=== PATIENT | female | born 1955 | race Caucasian/White ===

== ENCOUNTER 2024-01-14 18:30 | Emergency (ER) | payer MEDICARE, OTHER, SELFPAY ==
[2024-01-14 18:34] VITALS: BP 137/74; BMI 27.8
--- NOTE | 2024-01-14 19:26 | ED.GENMED ---
History of Present Illness
General
Chief Complaint: Cough
Time Seen by Provider: 01/14/24 19:11
Travel History
Have you had any contact with someone who has COVID-19?: No
Do you have any symptoms of coronavirus? Fever > 100 degrees, chills, cough, shortness of breath, sore throat, loss of taste or smell, muscle aches, or headache?: No
History of Present Illness
History of Present Illness:
68-year-old female presents the emergency department for evaluation of sore throat, cough, congestion, postnasal drip. Her has similar symptoms. Denies any fevers or chills. No history of lung disease
Past History
Past History
ED Past Medical History: Cancer (Breast cancer with lumpectomy.)
ED Past Surgical History: Orthopedic (Previous tibial plateau fracture.)
Social History
Tobacco: Non-smoker
Alcohol: Occasional
Drug: None
Personal:
Living: with family
Employment: Employed
Family History
Family History: Other (Noncontributory)
Review of Systems
Review of Systems
Allergies reviewed?: Yes
All Other Systems: ROS reviewed and negative except as documented in HPI and ROS
Phy Exam
Physical Exam
Physical Exam:
GEN: Well appearing, NAD, WDWN
HEENT: Oral mucosa moist, no scleral icterus, oropharynx clear
Cardiac: Regular rate and rhythm, no murmurs
Lung: No respiratory distress, no tachypnea, lungs clear to auscultation
MSK: No gross deformity or injuries
Skin: Good color, no pallor or jaundice, no rashes
Neuro: AO x3, moves all extremities freely
Psych: Calm, cooperative
Course
Orders/Labs/Results
Orders:
Orders
01/14/24 19:16
COVID-19 Antigen Urgent
Source: Nasal Swab
Influenza A+B Rapid Molecular Urgent
NITA Source: Nasal Swab
Specimen Description:
01/14/24 20:24
Azithromycin [Zithromax] 500 mg PO NOW STA
Vital Signs
Initial and Last Documented VS:
Initial Vital Signs
Temp Pulse Resp BP Pulse Ox
98.0 F 101 20 137/74 97
01/14/24 18:34 01/14/24 18:34 01/14/24 18:34 01/14/24 18:34 01/14/24 18:34
Last Documented Vital Signs
Temp Pulse Resp BP Pulse Ox
98.0 F 101 20 137/74 97
01/14/24 18:34 01/14/24 18:34 01/14/24 18:34 01/14/24 18:34 01/14/24 18:34
MDM/Problems Addressed
MDM/Problems Addressed:
Patient's symptoms are likely viral, lungs are clear however given that her was noted to have a left lower lobe pneumonia we will treat her with antibiotics empirically
*Critical Care Note
Total Time (30-74mins, 75-104mins- exclusive of procedures): Not Applicable
ED Attending Note
-
Portions of this chart may have been created with voice recognition software.� Occasional wrong word or��sound alike� substitutions may have occurred due to the inherent limitations of voice recognition software.
Discharge Plan
Departure
Patient Disposition: Home (Routine Discharge)
Date of Disposition: 01/14/24
Time of Disposition: 19:26
Patient with high blood pressure during this ER visit?: No
Discharge Problem:
Viral URI with cough
Instructions: Viral Upper Respiratory Infection, Adult (DC)
Prescriptions:
New
azithromycin [Zithromax] 250 mg tablet
250 mg PO DAILY 4 Days Qty: 4 0RF
No Action
ibuprofen 600 MG tablet
600 mg PO Q6HPRN PRN (Reason: pain) Qty: 30 0RF
Interventions
Interventions:
*Risk Screen - Suicide Last Done: 01/14/24 18:34
*General Assessment Last Done: 01/14/24 19:41
*Neglect/Abuse Screening Last Done: 01/14/24 18:34
ED- Fall Risk Assessment Last Done: 01/14/24 19:22
*ED COVID-19 Vaccine History Last Done: 01/14/24 18:34
*Nursing Disposition Last Done: 01/14/24 19:32
ED- Pulmonary Assessment Last Done: 01/14/24 19:20
Discharge Date and Time
Discharge Date/Time: 01/14/24 19:42
[2024-01-14 19:40] LABS: COVID-19 Antigen Negative (Negative)
[2024-01-14] MEDS: ZITHROMAX 500 MG PO (20:30)
== END 2024-01-14 19:42 | disposition home or self-care (01) ==
LOC: EMR 18:30
PROVIDERS: Emergency Medicine; EMERGENCY PHYSICIAN Emergency Medicine
DX: J06.9 Acute upper respiratory infection, unspecified (principal); Z11.52 Encounter for screening for COVID-19
CPT/HCPCS: 99283; 87502; 87811

== ENCOUNTER → 2024-02-29 15:41 | Outpatient (REF) | payer MEDICARE, OTHER, SELFPAY | LOC: HWRAD 15:41 | PROVIDERS: ATTENDING PHYSICIAN Podiatrist Primary Podiatric Medicine; FAMILY PHYSICIAN Family Medicine | DX: M79.671 Pain in right foot (principal); M79.672 Pain in left foot | CPT/HCPCS: 73630 ==

== ENCOUNTER → 2024-06-10 15:50 | Outpatient (REF) | payer MEDICARE, OTHER, SELFPAY ==
[2024-06-11 15:08] LABS: Body Fluid WBC 14380 /CUMM
[2024-06-11 15:09] LABS: Body Fluid Mononuclear 41.8 %; Body Fluid Polymorphonuclear 58.2 %
[2024-06-11 15:12] LABS: Body Fluid Second Tech FB
== END ==
LOC: CLAB 15:50
PROVIDERS: ATTENDING PHYSICIAN Orthopaedic Surgery
DX: M25.562 Pain in left knee (principal)
CPT/HCPCS: 89051; 89060